=== PATIENT | female | born 1940 | race Caucasian/White ===

== ENCOUNTER 2018-03-23 09:50 | Emergency (ER) | payer MEDICARE ==
[~2018-03-23] VITALS: Ht 162.6 cm; Wt 99.8 kg
[2018-03-23] MEDS ORDERED: PREDNISONE 20 MG TAB PO ONE (10:45)
--- OUTSIDE RECORDS SUMMARY | 2018-04-01 11:25 | XMS REPORT | Summary of Care ---
Author Author [facility] [place] Organization [facility] [place] Address Unknown Phone Unavailable Encounter HQ Encntr_alimelissa(FIN) [id number] Date(s): 04/15/15 - 04/15/15 [facility] [place] [address] [place] [address] [phone] Discharge Disposition: Home Attending Physician: [place] MD Vital Signs No data available for this section Problem List No data available for this section Allergies, Adverse Reactions, Alerts No data available for this section Medications No data available for this section Results No data available for this section Immunizations No data available for this section Procedures No data available for this section Social History No data available for this section Assessment and Plan No data available for this section
--- OUTSIDE RECORDS SUMMARY | 2018-04-01 11:25 | XMS REPORT | Continuity of Care Document ---
Author Author [facility] Interface Address Unknown Phone Unavailable Problems Problem Status Onset Date Classification Date Reported Comments Source LT KNEE, SX 03/17/18 Active 03/19/2018 [facility] [place] UNK Active 01/30/2018 [facility] LEFT KNEE DJD Active 01/30/2018 [facility] OA OF KNEE Active 11/18/2017 [facility] [place] Z12.31 - ENCNTR SCREEN MAMMOGRAM FOR MA Active 05/10/2017 [facility] [place] Final: Encounter for screening mammogram for malignant neoplasm of breast 05/30/2017 [facility] [place] Medications Medication Details Route Status Patient Instructions Ordering Provider Order Date Source Allergies, Adverse Reactions, Alerts Substance Category Reaction Severity Reaction type Status Date Reported Comments Source Immunizations Immunization Date Given Site Status Last Updated Comments Source Results Order Name Results Value Reference Range Date Interpretation Comments Source Knee 1-2 Views unilateral DX Knee 1-2 Views unilateral DX SL: [id number] Patient Name: HO RENEE : 1940; Age: 77 years Female MR: [id number] Study: Knee unilateral DX 03/17/2018 8:30 AM CDT Clinical Indication: - post total knee replacement. Left-sided knee replacement postoperative imaging COMPARISON: Left knee radiograph 03/13/2018 FINDINGS: Views and laterality: Left knee. 5 views. Interval demonstration of a cemented knee arthroplasty. This projects in anatomic position. Alignment is within normal limits. There are scattered foci of air within the suprapatellar and infrapatellar soft tissues. This is compatible with recent postoperative change. There is no fracture delineated. IMPRESSION: 1. Interval demonstration of cemented knee arthroplasty with recent postoperative changes as above. No acute fracture delineated. SL: CAMACHO 03/17/2018 - - Read by: Armando Echevarria MD Dictated Date/time: 03/17/18 09:16 Electronically Signed by: Armando Echevarria MD 03/17/18 09:25 FINAL REPORT [facility] Knee series 3 views DX Knee series 3 views DX Left Knee Clinical Indication: Severe left knee pain, planned replacement Comparison: None FINDINGS: The AP, oblique and lateral views of the knee show normal alignment without fractures or dislocations. The medial and lateral tibiofemoral compartments and patellofemoral compartment are severely narrowed with oubt-dc-pmzn contact within the medial compartment and patellofemoral compartment. There is no knee region soft tissue swelling. Hoffa's fat pad region is unremarkable. There are no joint bodies. There is a small suprapatellar joint effusion. There are no radiopaque foreign bodies. If there is further concern, recommend follow-up radiographs or MRI for complete assessment. IMPRESSION: Severe tricompartmental osteoarthritis of the left knee. SL: [id number] 03/13/2018 - - Read by: Danielito Alcala MD Dictated Date/time: 03/14/18 07:21 Electronically Signed by: Danielito Alcala MD 03/14/18 07:21 FINAL REPORT [facility] Bone length scanogram DX Bone length scanogram DX Patient Name: HO RENEE : 1940; Age: 77 years y/o Female MR: [id number] Study: Bone length scanogram DX 03/13/2018 8:52 AM CDT Ordering Physician: MD Carlos Gruber MD Clinical Indication: - Left Knee Replacement; Comparison: None Left femur and tib-fib upright AP views only IMPRESSION: There are advanced degenerative changes within the knee with severe narrowing of the medial compartment with near ghpm-zr-[id number] appearance. There are meniscal calcifications within the lateral compartment. There is no additional bony fracture, subluxation or lesion evident. SL: [id number] 03/13/2018 - - Read by: Dain Davis MD Dictated Date/time: 03/14/18 15:00 Electronically Signed by: Dain Davis MD 03/14/18 15:01 FINAL REPORT [facility] Chest 2 views DX Chest 2 views DX Clinical Indication: Coughing - left knee replacement Comparison: None FINDINGS: The frontal and lateral chest radiographs show normal lung volumes. There are no opacities, pleural effusions or pneumothorax. The cardiomediastinal contours are normal for the age of the patient with aortic tortuosity. There are degenerative changes in the spine and shoulders. IMPRESSION: No chest radiographic evidence of acute cardiopulmonary abnormality. : [id number] 03/13/2018 - - Read by: Danielito Alcala MD Dictated Date/time: 03/13/18 15:02 Electronically Signed by: Danielito Alcala MD 03/13/18 15:02 FINAL REPORT [facility] Breast Mammo Scrn CHELLE incl CAD MA Breast Mammo Scrn CHELLE incl CAD MA CLINICAL: Z12.31/Encounter For Screening Mammogram For Malignant Neoplasm Of Breast. Current study was evaluated with a Computer Aided Detection (CAD) system. COMPARISON:Comparison is made to exams dated: 04/15/2015 mammogram, 07/20/2011 mammogram, 11/05/2006 mammogram, and 12/29/2004 mammogram - [facility]. TECHNIQUE: Mammographic views were obtained using digital acquisition. Current study was also evaluated with a Computer Aided Detection (CAD) system. FINDINGS: The tissue of both breasts is almost entirely fat. There are benign appearing calcifications in both breasts. No significant masses, calcifications, or other findings are seen in either breast. There has been no significant interval change. IMPRESSION: BENIGN RECOMMENDATION:There is no mammographic evidence of malignancy. A 1 year screening mammogram is recommended.(05/28/2018) This exam was interpreted at [id number] for NOVA Mccauley M.D. cm/penrad:05/28/2017 16:16:09 Waiver Analyst(s): Stacie Melgar RT(R)(M), [facility] letter sent: BI-RADS 1/2 Mammogram BI-RADS: 2 Benign 05/27/2017 - - Read by: Real Stratton MD Dictated Date/time: 05/28/17 16:16 Electronically Signed by: Real Stratton MD 05/28/17 16:16 FINAL REPORT JAVIER Vidal Digital Mammo Screening [place] Digital Mammo Screening [place] - DIGITAL MAMMO SCREENING CHELLE MA BILATERAL DIGITAL SCREENING MAMMOGRAM WITH CAD: 04/15/2015 CLINICAL: Routine. Current study was evaluated with a Computer Aided Detection (CAD) system. Comparison is made to exams dated: 07/20/2011 mammogram, 12/29/2004 mammogram and 11/05/2006 mammogram - [facility]. The tissue of both breasts is almost entirely fat. No suspicious masses, calcifications, or other findings are seen in either breast. There has been no significant interval change. IMPRESSION: NEGATIVE There is no mammographic evidence of malignancy. A 1 year screening mammogram is recommended. Damaso Parra cl/:04/15/2015 13:25:04 Waiver Analyst: Stacie Melgar [facility] This exam was dictated and interpreted by [id number] for MARIE Vidal. letter sent: Normal exam Mammogram BI-RADS: 1 Negative 04/15/2015 - - Read by: Damaso Parra MD Dictated Date/time: 04/15/15 13:25 Electronically Signed by: Damaso Parra MD 04/15/15 13:25 FINAL REPORT J[facility]IER Vidal Vital Signs Vital Sign Value Date Comments Source Encounters Location Location Details Encounter Type Encounter Number Reason For Visit Attending Provider ADM Date DC Date Status Source [facility] [place] [facility] Services [id number] [place] 04/15/2015 04/16/2015 JAVIER Vidal [facility] [place] Out[facility] [id number] Pacheco Rice 05/27/2017 05/28/2017 JAVIER Vidal [facility] [place] [facility] Patients [id number] Carlos Gruber 11/21/2017 12/21/2017 [facility] [facility] Procedure Code Date Perfomer Comments Source
--- OUTSIDE RECORDS SUMMARY | 2018-04-01 11:25 | XMS REPORT | Summary of Care ---
Author Author [facility] Address Unknown Phone Unavailable Encounter Donavanr_andrew(JONO) [id number] Date(s): 11/21/17 - 12/20/17 [facility] Discharge Disposition: Home or Self Care Attending Physician: Carlos Gruber MD Vital Signs No data available for [...]
--- OUTSIDE RECORDS SUMMARY | 2018-04-01 11:25 | XMS REPORT | Summary of Care ---
Author Diego Oden M.A. Organization Unknown Address [facility] Phone Unavailable Care Team Providers Care Residential Mental Health Worker Name Role Phone Diego Gonzalez M.A. Unavailable Unavailable Pacheco Rice MD Unavailable Unavailable PACHECO RICE M.D. 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 Active Ramipril 10 MG Oral Capsule TAKE 1 CAPSULE ONCE DAILY. * Refills: 0 Active Atorvastatin Calcium 40 MG Oral Tablet TAKE 1 TABLET DAILY. * Refills: 0 Active Aspirin 81 MG Oral Tablet Delayed Release * Refills: 0 Active PreserVision AREDS 2 CAPS * Refills: 0 Active Boniva 150 MG Oral Tablet * Refills: 0 Active Multi Vitamin/Minerals Oral Tablet * Refills: 0 Active Calcium Citrate + D TABS * Refills: 0 Active Allergies and Adverse Reactions Name Dates Details Ancef (Allergy) Status: Active codeine (Allergy) Status: Active Past Medical History Name Dates Details History of Age-related macular degeneration (362.50, H35.30) Status: Resolved History of seborrheic dermatitis (V13.3, Z87.2) Status: Resolved History of Vitiligo (709.01, L80) Status: Resolved Procedures Procedure Dates Details History of hysterectomy Completed History of hemorrhoidectomy Completed History of angioplasty Completed History of meniscus repair Completed History of knee replacement Completed History of rotator cuff repair Completed History of cataract surgery Completed Immunization Name Dates Details Immunizations not documented Family History Name Dates Details No pertinent family history Status: Active Social History Name Dates Details - Status: Name Dates Details Never smoker Vital Signs Date Test Result Details No Known Vitals to report Results Date Description Value Details [id number] [place] Digital Mammo Screening Ayush [id number] Digital Mammo Screening Ayush [place] SEE NOTES Comments: CLINICAL: Z12.31/Encounter For Screening Mammogram For Malignant Neoplasm OfBreast. Current study was evaluated with a Computer Aided Detection (CAD) system. COMPARISON:Comparison is made to exams dated: 04/15/2015 mammogram, 07/20/2011mammogram, 11/05/2006 mammogram, and 12/29/2004 mammogram - [facility]. TECHNIQUE: Mammographic views were obtained using digital acquisition. Currentstudy was also evaluated with a Computer Aided Detection (CAD) system.FINDINGS:The tissue of both breasts is almost entirely fat. There are benign appearing calcifications in both breasts. No significant masses, calcifications, or other findings are seen in eitherbreast. There has been no significant interval change.IMPRESSION: BENIGNRECOMMENDATION:There is no mammographic evidence of malignancy. A 1 yearscreening mammogram is recommended.(05/28/2018) This exam was interpreted [id number] for NOVA Mccauley 15. Vadim Solitario M.D., cm/caroline:05/28/2017 16:16:09 Conservation Assistant(s): Stacie Melgar RT(R)(M), [facility] sent: BI-RADS 1/2 Mammogram BI-RADS: 2 Benign--Read by: Real Stratton MDDictated Date/time: 05/28/17 16:16Electronically Signed by: Real Stratton MD 05/28/1716:16FINAL REPORT [id number]-[id number]:15 [QLH] CBC (INCLUDES DIFF/PLT) WBC 6.4 {K/CMM} Range: 3.7-10.4 RBC 4.03 {M/CMM} (Below low threshold) Range: 4.20-5.40 Hgb 13.2 g/dl Range: 12.0-16.0 Hct 40.3 % Range: 36.0-48.0 MCV 100.1 fL (Above high threshold) Range: 80.0-98.0 MCH 32.9 pg (Above high threshold) Range: 27.0-31.0 MCHC 32.8 g/dl Range: 32.0-36.0 RDW 15.1 % (Above high threshold) Range: 11.5-14.5 Platelet 258 {K/CMM} Range: 133-450 Mean Platelet Volume 8.4 fL Range: 7.4-10.4 :15 [QL] Differential Segmented Neutrophils 59.7 % Range: 45.0-75.0 Monocytes 12.3 % (Above high threshold) Range: 2.0-12.0 Lymphocytes 24.6 % Range: 20.0-40.0 Eosinophils 2.8 % Range: 0.0-4.0 Basophils 0.6 % Range: 0.0-1.0 Segs-Bands # 3.8 {K/CMM} Range: 1.5-8.1 Lymphocytes # 1.6 {K/CMM} Range: 1.0-5.5 Monocytes # 0.8 {K/CMM} Range: 0.0-0.8 Eosinophils # 0.2 {K/CMM} Range: 0.0-0.5 :15 [QL] CMP W/EGFR Sodium Level 144 {mEq/l} Range: 135-145 Potassium Level 5.2 {mEq/l} (Above high threshold) Range: 3.5-5.1 Chloride Level 108 {mEq/l} Range: 95-109 Carbon Dioxide 29 {mEq/l} Range: 24-32 AGAP 12.2 {mEq/l} Range: 10.0-20.0 Glucose Lvl 101 mg/dl (Above high threshold) Range: 70-99 Comments: Adult reference range values reflect the clinical guidelinesof the [place] [employer]. Creatinine Lvl 0.60 mg/dl Range: 0.50-1.40 Blood Urea Nitrogen 17 mg/dl Range: 7-22 BUN/Creatinine Ratio 28 (Above high threshold) Range: 6-25 Total Protein 7.1 g/dl Range: 6.4-8.4 Albumin Lvl 3.4 g/dl (Below low threshold) Range: 3.5-5.0 Globulin 3.7 g/dl Range: 2.7-4.2 A/G Ratio 0.9 Range: 0.7-1.6 Calcium Level Total 9.3 mg/dl Range: 8.5-10.5 ALT 26 u/l Range: 0-65 AST 16 u/l Range: 0-37 Bili Total 0.5 mg/dl Range: 0.2-1.3 Alk Phos 117 u/l Range: 39-136 eGFR 90 {ML/MIN/1.7} Comments: The eGFR is calculated using the CKD-EPI formula. In most young, healthyindividuals the eGFR will be >90 mL/min/1.73m2. The eGFR declines with age. AneGFR of 60-89 may be normal in some populations, particularly the elderly, forwhom the CKD-EPI formula has not been extensively validated. Use of the eGFR isnot recommended in the following populations:Individuals with unstable creatinine concentrations, including patients and those with serious co-morbid conditions.Patients with extremes in muscle mass or diet.The data above are obtained from the National Kidney Disease Education Program(NKDEP) which additionally recommends that when the eGFR is used in patientswith extremes of body mass index for purposes of drug dosing, the eGFR shouldbe multiplied by the estimated BMI. 81-[id number]:15 [[facility]] LIPID PANEL Chol 147 mg/dl Range: <=199 Trig 78 mg/dl Range: <=149 HDL Cholesterol 61 mg/dl Range: >=61 CHD Risk 2.41 (Below low threshold) Range: 3.90-5.80 LDL 70 mg/dl Range: <=99 VLDL 16 27-Dsy-93270:15 [[facility]] TSH, 3RD GENERATION W/REFLEX TO FT4 TSH 2.900 {uIU/ml} Range: 0.360-3.740 83-Sqz-578672:30 Tobacco Use Screening Completed DONE Plan of Care Name Dates Details Planned Observations Planned Goals not documented Instructions Name Dates Details Instructions not documented Encounters Appointment; PACHECO RICE M.D. Encounter Diagnosis: Problem not documented On: 07-May-2017 11:30
--- OUTSIDE RECORDS SUMMARY | 2018-04-01 11:25 | XMS REPORT | Summary of Care ---
Author Author [facility] [place] Organization [facility] [place] Address Unknown Phone Unavailable Encounter HQ Encntr_alias(FIN) [id number] Date(s): 05/27/17 - 05/27/17 [facility] [place] [address] [place] [phone] Final: Encounter for screening mammogram for malignant neoplasm of breast Discharge Disposition: Home or Self Care Attending Physician: Pacheco Rice MD Vital Signs No data available for [...]
== END 2018-03-23 10:47 | disposition home or self-care (01) ==
LOC: FSED 09:50
DX: R21 Rash and other nonspecific skin eruption (principal); L50.0 Allergic urticaria; Z96.653 Presence of artificial knee joint, bilateral; I10 Essential (primary) hypertension; I25.10 Atherosclerotic heart disease of native coronary artery without angina pectoris; E78.5 Hyperlipidemia, unspecified
CPT/HCPCS: 99283; J7512

== ENCOUNTER 2018-05-15 10:41 | Emergency (ER) | payer MEDICARE ==
[~2018-05-15] VITALS: Ht 162.6 cm; Wt 101.6 kg
--- OUTSIDE RECORDS SUMMARY | 2018-05-15 10:43 | XMS REPORT | Continuity of Care Document ---
Author Author [facility] Interface Address Unknown Phone Unavailable Problems Problem Status Onset Date Classification Date Reported Comments Source LT KNEE, SX 03/17/18 Active 03/19/2018 [facility] [place] LEFT KNEE Active 03/17/2018 [facility] [place] UNK Active 01/30/2018 [facility] LEFT KNEE DJD Active 01/30/2018 [place] OA OF KNEE Active 11/18/2017 [facility] [place] Z12.31 - ENCNTR SCREEN MAMMOGRAM FOR MA Active 05/10/2017 [facility] [place] Final: Encounter for screening mammogram for malignant neoplasm of breast 05/30/2017 [facility] [place] Medications Medication Details Route Status Patient Instructions Ordering Provider Order Date Source Allergies, Adverse Reactions, Alerts Substance Category Reaction Severity Reaction type Status Date Reported Comments Source Immunizations Immunization Date Given Site Status Last Updated Comments Source Results Order Name Results Value Reference Range Date Interpretation Comments Source Knee 1-2 Views unilateral DX Knee 1-2 Views unilateral DX SL: CAMACHO Patient Name: HO RENEE : 1940; Age: 77 years Female MR: [id number] Study: Knee unilateral DX 03/17/2018 8:30 AM [...] Armando Echevarria MD 03/17/18 09:25 FINAL REPORT [facility] Knee series 3 views DX Knee series 3 views DX Left Knee Clinical Indication: Severe left knee pain, planned replacement Comparison: None FINDINGS: The AP, oblique and lateral views of the knee show normal alignment without fractures or dislocations. The medial and lateral tibiofemoral compartments and patellofemoral compartment are severely narrowed with ismp-yz-dogc contact within the medial compartment and patellofemoral compartment. There is no knee region soft tissue swelling. Hoffa's fat pad region is unremarkable. There are no joint bodies. There is a small suprapatellar joint effusion. There are no radiopaque foreign bodies. If there is further concern, recommend follow-up radiographs or MRI for complete assessment. IMPRESSION: Severe tricompartmental osteoarthritis of the left knee. SL: [id number] 03/13/2018 - - Read by: Danielito Alcala MD Dictated Date/time: 03/14/18 07:21 Electronically Signed by: Danielito Alcala MD 03/14/18 07:21 FINAL REPORT [facility] Bone length scanogram DX Bone length scanogram DX Patient Name: HO RENEE : 1940; Age: 77 years y/o Female MR: [id number] Study: Bone length scanogram DX 03/13/2018 8:52 AM CDT Ordering Physician: MD Carlos Gruber MD Clinical Indication: - Left Knee Replacement; Comparison: None Left femur and tib-fib upright AP views only IMPRESSION: There are advanced degenerative changes within the knee with severe narrowing of the medial compartment with near ydxx-bn-fzmn appearance. There are meniscal calcifications within the lateral compartment. There is no additional bony fracture, subluxation or lesion evident. SL: [id number] 03/13/2018 - - Read by: Dain Davis MD Dictated Date/time: 03/14/18 15:00 Electronically Signed by: Dain Davis MD 03/14/18 15:01 FINAL REPORT [facility] Chest 2 views DX Chest 2 [...] radiographic evidence of acute cardiopulmonary abnormality. : [id number] 03/13/2018 - - Read by: Danielito Alcala MD Dictated Date/time: 03/13/18 15:02 Electronically Signed by: Danielito Alcala MD 03/13/18 15:02 FINAL REPORT [facility] Breast Mammo Scrn AYUSH incl CAD [place] Breast Mammo Scrn AYUSH incl CAD MA CLINICAL: Z12.31/Encounter For Screening Mammogram For Malignant Neoplasm Of Breast. Current study was evaluated with a Computer Aided Detection (CAD) system. COMPARISON:Comparison is made to exams dated: 04/15/2015 mammogram, 07/20/2011 mammogram, 11/05/2006 mammogram, and 12/29/2004 mammogram - [facility]. TECHNIQUE: Mammographic views were obtained using digital [...] is recommended.(05/28/2018) This exam was interpreted at [id number] for NOVA Mccauley 15. Vadim Solitario M.D. cm/penrad:05/28/2017 16:16:09 Communication Equipment Mechanic(s): RT Keshia(R)(M), [facility] letter sent: BI-RADS 1/2 Mammogram BI-RADS: 2 Benign 05/27/2017 - - Read by: Real Stratton MD Dictated Date/time: 05/28/17 16:16 Electronically Signed by: Real Stratton MD 05/28/17 16:16 [facility]ammo Screening Ayush MA Digital Mammo Screening Ayush MA - DIGITAL MAMMO SCREENING AYUSH MA BILATERAL DIGITAL SCREENING MAMMOGRAM WITH CAD: 04/15/2015 CLINICAL: Routine. Current study was evaluated with a Computer Aided Detection (CAD) system. Comparison is made to exams dated: 07/20/2011 mammogram, 12/29/2004 mammogram and 11/05/2006 mammogram - [facility]. The tissue of both breasts is almost entirely fat. No suspicious masses, calcifications, or other findings are seen in either breast. There has been no significant interval change. IMPRESSION: NEGATIVE There is no mammographic evidence of malignancy. A 1 year screening mammogram is recommended. Damaso Parra cl/:04/15/2015 13:25:04 Communication Equipment Mechanic: Stacie Melgar [facility] This exam was dictated and interpreted by [id number] for MARIE Vidal. letter sent: Normal exam Mammogram BI-RADS: 1 Negative 04/15/2015 - - Read by: Damaso Parra MD Dictated Date/time: 04/15/15 13:25 Electronically Signed by: Damaso Parra MD 04/15/15 13:25 FINAL REPORT MARIE Vidal Vital Signs Vital Sign Value Date Comments Source Encounters Location Location Details Encounter Type Encounter Number Reason For Visit Attending Provider ADM Date DC Date Status Source [facility] [place] Outpt Diag Services [id number] [place] 04/15/2015 04/16/2015 JAVIER Vidal [facility] [place] Out[facility] Diag Services [id number] Pacheco Rice 05/27/2017 05/28/2017 [facility] [place] [facility] Patients [id number] Carlos Gruber 11/21/2017 12/21/2017 [facility] Procedure Code Date Perfomer Comments Source
--- NOTE | 2018-05-15 14:17 | Diagnostic Imaging Report ---
ULTRASOUND LEFT LOWER EXTREMITY Color Doppler evaluation was utilized to supplement the evaluation. Per the technologist performing the exam, the exam was technically limited. HISTORY: Pain, history of surgery COMPARISON: None DISCUSSION: The femoral, greater saphenous and popliteal veins were examined using diaz scale compression ultrasound with the aid of color flow and pulsed wave doppler. The visualized portions of the common femoral, superficial femoral, profunda femoris and popliteal veins are compressible. There is pulsed wave Doppler responses with calf augmentation. IMPRESSION: Technically limited evaluation of the left lower extremity deep venous structures. Within this limitation, no evidence of deep venous thrombosis in the left lower extremity as described above. Signed by: Dr. Dave Nichols D.O., M.M.M. on 05/15/2018 2:13 PM
[2018-05-15 14:49] VITALS: BP 143/75
== END 2018-05-15 14:17 | disposition home or self-care (01) ==
LOC: FSED 10:41
DX: R60.9 Edema, unspecified (principal); I87.2 Venous insufficiency (chronic) (peripheral); Z96.652 Presence of left artificial knee joint
CPT/HCPCS: 85379; 85610; 93971; 99284